=== PATIENT | male | born 2005 | race Hispanic/Latino ===

== ENCOUNTER 2023-02-13 07:05 | Emergency (ER) | payer OTHER ==
--- OUTSIDE RECORDS SUMMARY | 2023-02-13 07:08 | XMS REPORT | Continuity of Care Document ---
:2005 Author Organization [facility] t Address [address] [place] [address] [place] [id number] Care Team Providers Name Role Phone Unavailable Unavailable Unavailable Problems This patient has no known problems. Allergies, Adverse Reactions, Alerts This patient has no known allergies or adverse reactions. Medications This patient has no known medications. Procedures This patient has no known procedures. Encounters Start End Encounter Admission Attending Care Care Encounter Source Date/Time Date/Time Type Type Clinicians Facility Department ID 2023-01-30 2023-01-30 Outpatient [facility] [id number] 09:07:03 09:07:03 [id number] F Ty 2022-12-25 2022-12-25 Outpatient [facility] [id number] 13:12:28 13:12:28 [id number] Fahad Crawford Results This patient has no known results.
[2023-02-13 07:43] LABS: Absolute Lymphocytes (CBC) 1.3 K/uL (0.7-4.9); Hematocrit 40.9 % (39.6-49.0); Lymphocytes % 16.6 % (15.3-44.8); MCV 81.7 fL (80-100); Platelets 267 thou/uL (152-406); RBC Red Blood Cell Count 5.01 M/uL (4.33-5.43)
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
[2023-02-13 07:57] LABS: Potassium 3.6 mEq/L (3.5-5.1)
--- NOTE | 2023-02-13 07:57 | RAD REPORT ---
EXAM DESCRIPTION: RAD - Knee Right 3 View - 02/13/2023 7:37 am CLINICAL HISTORY: Right knee pain status post injury FINDINGS: No fracture or dislocation is seen.
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
[2023-02-13] MEDS ORDERED: KETOROLAC 30 MG/ML INJ ONE (08:18)
[2023-02-13 08:31] VITALS: O2SAT 97
[2023-02-13 08:37] VITALS: BP 121/72
== END 2023-02-13 08:21 | disposition home or self-care (01) ==
LOC: ER 07:05
DX: S60.212A Contusion of left wrist, initial encounter (principal); S80.01XA Contusion of right knee, initial encounter; S09.90XA Unspecified injury of head, initial encounter; V47.5XXA Car driver injured in collision with fixed or stationary object in traffic accident, initial encounter
CPT/HCPCS: 85025; 80048; 36415; 70450; 72125; 71260; 74177; 73110; 73562; Q9967